=== PATIENT | male | born 1945 | race Caucasian/White ===

== ENCOUNTER 2016-04-24 00:47 | Emergency (ER) | payer OTHER, MEDICARE ==
[~2016-04-24] VITALS: Ht 170.2 cm; Wt 63.5 kg
[~2016-04-24 00:47] MED LIST: ATORVASTATIN CA10 MG PO; LISINOPRIL10 MG PO; MULTIVITAMIN1 TAB PO; PERCOCET 5-3251 EACH PO
--- NOTE | 2016-04-24 02:38 | ED HEAD/FACIAL INJ COMPLAINT ---
History of Present Illness General Chief Complaint: Laceration Procedure Stated Complaint: LAC TO LT EYEBROW S/P FALL NO LOC Source: patient, old records Exam Limitations: no limitations Vital Signs & Intake/Output Vital Signs & Intake/Output Vital Signs Date Time Temp Pulse Resp B/P Pulse O2 O2 Flow FiO2 Ox Delivery Rate 04/24 0246 97.4 56 19 148/85 96 04/24 0122 Room Air 04/24 0104 97.1 52 18 157/81 96 Room Air Allergies Coded Allergies: NO KNOWN ALLERGIES (02/14/16) Reconcile Medications Atorvastatin Calcium (Lipitor) 10 MG TABLET 1 TAB PO DAILY CHOLESTEROL ( Reported) Lisinopril 10 MG TABLET 1 TAB PO DAILY BP (Reported) Multivitamin (Multiple Vitamins) 1 EACH TABLET 1 TAB PO DAILY SUPPLEMENT ( Reported) Triage Note: TRIAGE: PATIENT TO ER FROM HOME REPORTS TRIPPED AND HIT L EYEBROW ON WOODWORK ON WALL, LAC APPROX 2CM LENGTH, NO ACTIVE BLEEDING NOTED. DENIES MILADY/ THINNERS. ALERT AND ORIENTED X3. Triage Nurses Notes Reviewed? yes Onset: Just prior to arrival Severity: mild Location: frontal Method of Injury: direct blow Loss of Consciousness: no loss of consciousness HPI: Prior to admission patient lost balance going to the bathroom and struck left forehead against door jam sustaining laceration extending to eyebrow. He denies fever chills nausea vomiting diarrhea abdominal pain chest pain shortness breath headache dysuria rash change in motor sensory function change of bowel bladder habit loss of consciousness. Past History Travel History Traveled to [place] past 21 day No Medical History Any Pertinent Medical History? 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 No Review of Systems Review of Systems Constitutional: Reports: no symptoms. EENTM: Reports: no symptoms. Respiratory: Reports: no symptoms. Cardiovascular: Reports: no symptoms. GI: Reports: no symptoms. Genitourinary: Reports: no symptoms. Musculoskeletal: Reports: no symptoms. Skin: Reports: see HPI. Neurological/Psychological: Reports: no symptoms. Hematologic/Endocrine: Reports: no symptoms. Immunologic/Allergic: Reports: no symptoms. All Other Systems: Reviewed and Negative Physical Exam Physical Exam General Appearance: well developed/nourished, alert, awake, mild distress Head: left frontal laceration extending to eyebrow Eyes: Bilateral: PERRL, EOMI. Ears, Nose, Throat: normal pharynx, normal ENT inspection, hearing grossly normal Neck: normal inspection, supple Respiratory: normal breath sounds Cardiovascular: regular rate/rhythm Gastrointestinal: normal bowel sounds, soft, non-tender, no organomegaly Back: normal inspection Extremities: normal inspection, normal range of motion, no edema Psychiatric: awake, alert, oriented x 3 Cranial Nerves: normal hearing, normal speech, PERRL Coordination/Gait: normal finger to nose, normal gait Motor/Sensory: no motor/sensory deficits Reflexes: 2+: bicep (R), bicep (L). Skin: intact, normal color, warm/dry Lymphatic: no anterior cervical nelson Progress Differential Diagnosis: facial fracture, skull fracture Plan of Care: Wound care Departure Departure Time of Disposition: 236 Disposition: HOME OR SELF CARE Condition: Stable Clinical Impression Primary Impression: Laceration of eyebrow, left Qualifiers: Encounter type: initial encounter Qualified Code: S01.112A - Laceration without foreign body of left eyelid and periocular area, initial encounter Referrals: ERIKA PATTERSON MD (PCP/Family) Additional Instructions: Suture removal 7-10 days Departure Forms: Customer Survey General Discharge Information Procedures Laceration/Wound Repair Laceration/Wound Repair: Wound Location: face Wound's Depth, Shape: linear Wound Length (cm): 3 Wound Explored: clean, irrigated extensively Irrigated w/ Saline (ccs): 250 Betadine Prep? No Anesthesia: 1% lidocaine Volume Anesthetic (ccs): 2 Wound Repaired With: sutures Suture Size/Type: 5:0, nylon Number of Sutures: 5 Layer Closure? No Sterile Dressing Applied: No Splint Applied? No Sling Applied? No
[2016-04-24 02:46] VITALS: BP 148/85
== END 2016-04-24 02:46 ==
LOC: ERH 00:47
DX: S01.112A Laceration without foreign body of left eyelid and periocular area, initial encounter (principal); W18.40XA Slipping, tripping and stumbling without falling, unspecified, initial encounter

== ENCOUNTER 2016-05-04 10:53 | Emergency (ER) | payer OTHER, MEDICARE ==
[~2016-05-04] VITALS: Ht 170.2 cm; Wt 63.5 kg
[2016-05-04 10:56] VITALS: BP 130/84
--- NOTE | 2016-05-04 11:41 | ED ANIMAL BITE/WOUND CHECK ---
History of Present Illness General Chief Complaint: Suture Removal/Wound Recheck Stated Complaint: SUTURE REMOVAL Source: patient, old records Exam Limitations: no limitations Vital Signs & Intake/Output Vital Signs & Intake/Output Vital Signs Date Time Temp Pulse Resp B/P Pulse O2 O2 Flow FiO2 Ox Delivery Rate 05/04 1056 97.4 54 20 130/84 100 Room Air Allergies Coded Allergies: NO KNOWN ALLERGIES (02/14/16) Reconcile Medications Atorvastatin Calcium (Lipitor) 10 MG TABLET 1 TAB PO DAILY CHOLESTEROL ( Reported) Lisinopril 10 MG TABLET 1 TAB PO DAILY BP (Reported) Multivitamin (Multiple Vitamins) 1 EACH TABLET 1 TAB PO DAILY SUPPLEMENT ( Reported) Triage Note: PT TO ED FOR SUTURE REMOVAL ABOVE LEFT EYE. PLACED 04/24. PT HAS NO PAIN, NO S/S INFECTION. Triage Nurses Notes Reviewed? yes Onset: Abrupt Duration: day(s): Timing: recent history No Modifying Factors: none HPI: 71-year-old male comes into emergency room for suture removal to face. Denies any redness on discharge fever or chills. Denies any other associated symptoms. Denies any pain. Patient was seen here about 9 days ago for suture placement. Past History Travel History Traveled to [place] past 21 day No Medical History Any Pertinent Medical History? 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 No Review of Systems Review of Systems Constitutional: Reports: no symptoms. EENTM: Reports: no symptoms. Respiratory: Reports: no symptoms. Cardiovascular: Reports: no symptoms. GI: Reports: no symptoms. Genitourinary: Reports: no symptoms. Musculoskeletal: Reports: see HPI. Skin: Reports: no symptoms. Neurological/Psychological: Reports: no symptoms. Hematologic/Endocrine: Reports: no symptoms. Immunologic/Allergic: Reports: no symptoms. All Other Systems: Reviewed and Negative Physical Exam Physical Exam General Appearance: well developed/nourished, mild distress Head: 4 sutures to face Eyes: Bilateral: normal appearance. Ears, Nose, Throat: normal ENT inspection, hearing grossly normal Neck: normal inspection Respiratory: no respiratory distress Back: normal inspection Extremities: normal range of motion Neurologic/Psych: awake, alert, oriented x 3, normal mood/affect Skin: intact, normal color, warm/dry Lymphatic: no anterior cervical nelson Progress Differential Diagnosis: abscess, cellulitis, joint infection, tenosysnovitis Plan of Care: 05/04/2016 11:52:52 AM Only 4 sutures appreciated. SUTURES removed. Departure Departure Disposition: HOME OR SELF CARE Condition: Stable Clinical Impression Primary Impression: Visit for suture removal Referrals: ERIKA PATTERSON MD (PCP/Family) Additional Instructions: Please note that there might be incidental findings in your evaluation that are unrelated to the current emergency department visit. Please notify your primary care doctor about this emergency department visit in order to obtain and review all of the testing performed so that these incidental findings can be monitored as needed. If you had an x-ray performed, please understand that some fractures may not be seen on the initial set of x-rays. If your symptoms persist you might need a repeat set of x-rays to check for such a fracture. If you had a laceration evaluated, please understand that foreign bodies such as glass or wood may not be visible to the naked eye or on plain x-rays. If the wound becomes red, swollen, increasingly more painful or if there is any drainage from the wound, please have it reevaluated by a physician for the possibility of a retained foreign body. Departure Forms: Customer Survey General Discharge Information
== END 2016-05-04 11:43 ==
LOC: ERH 10:53
DX: S01.81XA Laceration without foreign body of other part of head, initial encounter (principal); X58.XXXA Exposure to other specified factors, initial encounter
CPT/HCPCS: 99281

== ENCOUNTER 2017-03-29 20:04 | Observation (INO) | payer OTHER ==
[~2017-03-29] VITALS: Ht 170.2 cm; Wt 64.4 kg
[2017-03-29 20:34] LABS: ABSOLUTE BASOPHIL COUNT 0 /CUMM (0.0-0.2); ABSOLUTE EOSINOPHIL COUNT 0 /CUMM (0.0-0.7); ABSOLUTE LYMPH COUNT 1.7 /CUMM (1.2-3.4); ABSOLUTE MONOCYTE COUNT 0.8 /CUMM (0.10-0.60); BASOPHIL % 0.2 % (0.0-2.0); EOSINOPHIL % 0.3 % (0-5); HEMATOCRIT 46.7 % (42-52); MEAN CORPUSCULAR HGB 29.1 PG (27.0-31.0); MEAN CORPUSCULAR HGB CONC 33.5 G/DL (33.0-37.0); PLATELET COUNT 150 /CUMM (130-400); RBC DISTRIBUTION WIDTH 13.3 % (11.5-14.5); RED BLOOD CELL CT 5.37 /CUMM (4.70-6.10); WHITE BLOOD CELL COUNT 11.5 /CUMM (4.8-10.8)
--- NOTE | 2017-03-29 22:48 | ED GI/GU/ABDOMINAL COMPLAINT ---
History of Present Illness General Chief Complaint: Abdominal Pain/Flank Pain Stated Complaint: ABD PAIN Source: patient, family, old records Exam Limitations: no limitations Allergies Coded Allergies: NO KNOWN ALLERGIES (02/14/16) Reconcile Medications Atorvastatin Calcium (Lipitor) 10 MG TABLET 1 TAB PO DAILY CHOLESTEROL ( Reported) Lisinopril 10 MG TABLET 1 TAB PO DAILY BP (Reported) Triage Note: PER PT ABD PAIN NO NVD STARTED THIS PM, LAST YEAR WITH SIMILIAR PAIN HAD TO HAVE PART OF INTESTINGREMOVED FROM BLOCKAGE, NO NVD NO BM CO PT REPORTS HR IS ALWAYS IN THE 40'S. Triage Nurses Notes Reviewed? yes Onset: Gradual Duration: hour(s): Timing: single episode today Quality/Severity: mild Severity Numbers: 2 Location: periumbilical HPI: 71YO MALE with hx of ischemic bowel s/p resection in 2016 presents to ED complaining of periumbilical abdominal pain beginning shortly after lunch today. Patient describes pain as 2/10 currently, was about 3-4/10 at onset. Patient states that pain is in same area as prior pain with ischemic bowel however much less severe. Patient has been eating and drinking regularly today. Patient has had 4 bowel movements today, describes them as normal. He denies diarrhea, constipation, nausea, vomiting, fevers, chills, chest pain, dyspnea. (Patti KHOURY,Juana Piña) Vital Signs & Intake/Output Vital Signs & Intake/Output Vital Signs Date Time Temp Pulse Resp B/P B/P Pulse O2 O2 Flow FiO2 Mean Ox Delivery Rate 03/29 2353 96.8 52 18 126/75 97 Room Air 03/29 2050 49 22 136/87 98 (Ana RUGGIERO,Endy Avelar) Past History Travel History Traveled to [place] past 21 day No Medical History Any Pertinent Medical History? 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 No (Patti KHOURY,Juana Piña) Review of Systems Review of Systems Constitutional: Reports: no symptoms. EENTM: Reports: no symptoms. Respiratory: Reports: no symptoms. Cardiovascular: Reports: no symptoms. GI: Reports: see HPI. Genitourinary: Reports: no symptoms. Musculoskeletal: Reports: no symptoms. Skin: Reports: no symptoms. Neurological/Psychological: Reports: no symptoms. Hematologic/Endocrine: Reports: no symptoms. Immunologic/Allergic: Reports: no symptoms. All Other Systems: Reviewed and Negative (Patti KHOURY,Juana Piña) Physical Exam Physical Exam General Appearance: well developed/nourished, no apparent distress, alert, awake Head: atraumatic, normal appearance Eyes: Bilateral: normal appearance. Ears, Nose, Throat, Mouth: hearing grossly normal Neck: normal inspection, supple, full range of motion Respiratory: normal breath sounds, no respiratory distress, lungs clear Cardiovascular: bradycardia Gastrointestinal: normal bowel sounds, soft, no organomegaly, mild LLQ tenderness without rebound or gaurding Back: normal inspection, normal range of motion Extremities: normal range of motion Neurologic/Psych: awake, alert, oriented x 3 Skin: intact, normal color, warm/dry Core Measures ACS in differential dx? No Sepsis Present: No Sepsis Focused Exam Completed? No (Juana Maradiaga) Progress Differential Diagnosis: appendicitis, bowel obstruction, colon cancer, cholecystitis, diverticulitis, gastritis, ischemic bowel, inflamm bowel dis, perforated viscous, SBO Plan of Care: Orders Procedure Date/time Status Nothing by Mouth 03/30 B Active CBC WITHOUT DIFFERENTIAL 03/30 0600 Active BASIC ELECTROLYTES PLUS BUN&CR 03/30 0600 Active Pathway - chart 03/30 0056 Active Patient Data 03/30 0052 Active Code Status 03/30 0052 Active RAPID VIRAL INFLUENZA A 03/[address] in observation 03/[address] in observation 03/30 UNK Active VTE Mechanical Prophylaxis 03/30 UNK Active Vital Signs 03/30 UNK Active Intake & Output 03/30 UNK Active Activity/Ambulation 03/30 UNK Active URINALYSIS 03/29 2014 Complete TROPONIN LEVEL 03/29 2014 Complete LIPASE 03/29 2014 Complete COMPREHENSIVE METABOLIC PANEL 03/29 2014 Complete CBC WITHOUT DIFFERENTIAL 03/29 2014 Complete AMYLASE 03/29 2014 Complete EKG 03/29 2006 Active Current Medications Sig/Sherita Start time Last Medication Dose Stop Time Status Admin Heparin Sodium 5,000 UNIT Q8 03/30 0600 UNVr (Porcine) Dextrose/Lactated 1,000 ML Q8H 03/30 0100 UNVr 03/30 Ringer's 0128 (D5W in Lactated Ringers) Laboratory Tests 03/29/172325: Urine Color YEL, Urine Clarity CLEAR, Urine pH 6.5, Ur Specific [place] 1.015, Urine Protein NEG, Urine Ketones NEG, Urine Nitrite NEG, Urine Bilirubin NEG, Urine Urobilinogen 0.2, Ur Leukocyte Esterase NEG, Ur Microscopic EXAM NOT REQUIRED, Urine Hemoglobin NEG, Urine Glucose NEG 03/29/172024: Anion Gap 13, Estimated GFR > 60, BUN/Creatinine Ratio 23.0, Glucose 112 H, Calcium 9.2, Total Bilirubin 0.5, AST 33, ALT 39, Alkaline Phosphatase 78, Troponin I < 0.01, Total Protein 7.1, Albumin 4.2, Globulin 2.9, Albumin/ Globulin Ratio 1.4, Amylase 43, Lipase 36, CBC w Diff NO MAN DIFF REQ, RBC 5.37, MCV 87.0, MCH 29.1, MCHC 33.5, RDW 13.3, MPV 9.0, Gran % 78.0 H, Lymphocytes % 14.4 L, Monocytes % 7.1, Eosinophils % 0.3, Basophils % 0.2, Absolute Granulocytes 9.0 H, Absolute Lymphocytes 1.7, Absolute Monocytes 0.8 H, Absolute Eosinophils 0, Absolute Basophils 0 Microbiology 03/30 0051 NASOPHARYN: Influenza Virus A & B Rapid Smear - COMP CT scan shows small bowel obstruction. Patient's blood work is within normal limits. I discussed these findings with surgical PA Radha Spring who spoke with Dr. Contreras regarding this patient. It was recommended patient remain for observation given his small bowel obstruction. Patient started on IV fluids and will remain NPO. The patient was discussed with Dr. Pardo. Diagnostic Imaging: Viewed by Me: CT Scan. Discussed w/RAD: CT Scan. Radiology Impression: PATIENT: COLTON REIS PRESENT AGE: 71 PATIENT ACCOUNT NO: [id number] : 46 LOCATION: [facility] ORDERING PHYSICIAN: Endy Pardo MD SERVICE DATE: 03/29/17 EXAM TYPE: CAT - CT ABD & PELVIS W IV CONTRAST EXAMINATION: CT ABDOMEN AND PELVIS WITH CONTRAST CLINICAL INFORMATION: Diffuse abdominal pain. Concern for small bowel obstruction. COMPARISON: CT scan abdomen pelvis 02/27/2016 TECHNIQUE: Multidetector volumetric imaging was performed of the abdomen and pelvis following IV administration of 95 mL of Optiray 320 intravenous contrast. Sagittal and coronal reformatted images were obtained on the technologist's workstation. DLP: 249.2 mGy-cm FINDINGS: LUNG BASES: The visualized lung bases are unremarkable. LIVER, GALLBLADDER, AND BILIARY TREE: The liver is normal in size, shape, and attenuation. No focal hepatic lesion or biliary ductal dilatation is present. The gallbladder is unremarkable with no evidence of radiopaque gallstones, gallbladder wall thickening, or obvious pericholecystic inflammatory changes. PANCREAS: Unremarkable. SPLEEN: Unremarkable. ADRENAL GLANDS: Unremarkable. KIDNEYS AND URETERS: The kidneys are normal in size, shape , and attenuation. No hydronephrosis, hydroureter, or calculi seen. No perinephric stranding. BLADDER: Unremarkable. GASTROINTESTINAL TRACT: There is a surgical anastomosis of small bowel in the left midabdomen. The small bowel loops proximal to this anastomosis are dilated with air-fluid levels in the distal small bowel loop is decompressed. This is consistent with a moderate small bowel obstruction. There is no bowel wall thickening or edema however. Large bowels decompressed. Moderate amount of stool in the colon. The appendix is normal. ABDOMINAL WALL: No significant hernia is appreciated. LYMPH NODES: Normal. VASCULAR: Unremarkable. PELVIC VISCERA: Unremarkable. OSSEOUS STRUCTURES : Unremarkable. IMPRESSION: Small bowel obstruction with transition point at the surgical anastomosis of small bowel in the left midabdomen. DICTATED BY: Luis Ordonez MD DATE/TIME DICTATED:03/29/172309 PERSONNEL RECORDS CLERK:KUSUM DATE/ TIME TRANSCRIBED:03/29/172309 CONFIDENTIAL, DO NOT COPY WITHOUT APPROPRIATE AUTHORIZATION. <Electronically signed in Other Vendor System> SIGNED BY: Luis Ordonez MD 03/29/172317 Initial ED EKG: none (Juana Maradiaga) Departure Departure Disposition: STILL A PATIENT Condition: Stable Clinical Impression Primary Impression: Small bowel obstruction Secondary Impressions: Abdominal pain Qualifiers: Abdominal location: periumbilical Qualified Code: R10.33 - Periumbilical pain Referrals: María Bunn MD (PCP/Family) Departure Forms: Customer Survey General Discharge Information (Patti KHOURY,Juana Piña) Observation Note Spoke With: Asa Sutton DO Physician Advisor Notified: ANA RUGGIERO,ENDY Avelar Place Patient In: Non-ED OBS Care Area Rationale for Observation: My rational for observation is as follows [SBO, NPO, IV FLUIDS, MAY REQUIRE SURGICAL INTEVENTION.]. PA/SUPERVISOR REMELT Co-Sign Statement Statement: ED Attending supervision documentation- [X] I saw and evaluated the patient. I have also reviewed all the pertinent lab results and diagnostic results. I agree with the findings and the plan of care as documented in the PA's/SUPERVISOR REMELT's documentation. [X] I have reviewed the ED Record and agree with the PA's/SUPERVISOR REMELT's documentation. [] Additions or exceptions (if any) to the PAs/SUPERVISOR REMELT's note and plan are summarized below: [] (Ana RUGGIERO,Endy Avelar)
--- NOTE | 2017-03-29 23:18 | CT SCAN REPORT ---
EXAMINATION: CT ABDOMEN AND PELVIS WITH CONTRAST CLINICAL INFORMATION: Diffuse abdominal pain. Concern for small bowel obstruction. COMPARISON: CT scan abdomen pelvis 02/27/2016 TECHNIQUE: Multidetector volumetric imaging was performed of the abdomen and pelvis following IV administration of 95 mL of Optiray 320 intravenous contrast. Sagittal and coronal reformatted images were obtained on the technologist's workstation. DLP: 249.2 mGy-cm FINDINGS: LUNG BASES: The visualized lung bases are unremarkable. LIVER, GALLBLADDER, AND BILIARY TREE: The liver is normal in size, shape, and attenuation. No focal hepatic lesion or biliary ductal dilatation is present. The gallbladder is unremarkable with no evidence of radiopaque gallstones, gallbladder wall thickening, or obvious pericholecystic inflammatory changes. PANCREAS: Unremarkable. SPLEEN: Unremarkable. ADRENAL GLANDS: Unremarkable. KIDNEYS AND URETERS: The kidneys are normal in size, shape, and attenuation. No hydronephrosis, hydroureter, or calculi seen. No perinephric stranding. BLADDER: Unremarkable. GASTROINTESTINAL TRACT: There is a surgical anastomosis of small bowel in the left midabdomen. The small bowel loops proximal to this anastomosis are dilated with air-fluid levels in the distal small bowel loop is decompressed. This is consistent with a moderate small bowel obstruction. There is no bowel wall thickening or edema however. Large bowels decompressed. Moderate amount of stool in the colon. The appendix is normal. ABDOMINAL WALL: No significant hernia is appreciated. LYMPH NODES: Normal. VASCULAR: Unremarkable. PELVIC VISCERA: Unremarkable. OSSEOUS STRUCTURES: Unremarkable. IMPRESSION: Small bowel obstruction with transition point at the surgical anastomosis of small bowel in the left midabdomen.
--- NOTE | 2017-03-30 00:57 | Admission Core Measures ---
Acute Coronary Syndrome (CM) ACS Core Measures Acute Coronary Syndrome Diagnosis No Congestive Heart Failure (NEW) CHF Core Measures Congestive Heart Failure Diagnosis No Cerebrovascular Accident (NEW) CVA Core Measures CVA/TIA Diagnosis No Venous Thromboembolism VTE Core Summer (View Protocol) VTE Risk Factors Acute Medical Illness No Mechanical VTE Prophylaxis d/t N/A MechProphylax Ordered No VTE Pharm Prophylaxis d/t NA PharmProphylax ordered Problem List As ranked by this Provider includes Assessment & Plan 1. Small bowel obstruction HOME MEDS Home Med List Atorvastatin Calcium (Lipitor) 10 MG TABLET 1 TAB PO DAILY CHOLESTEROL ( Reported) Lisinopril 10 MG TABLET 1 TAB PO DAILY BP (Reported)
--- NOTE | 2017-03-30 01:08 | History & Physical Pre-Op ---
Radha Freeman 03/30/17 0057: General Information and HPI History of Present Illness: 71yoM presents to ED complaining of acute onset of abdominal pain one hour after eating dinner. He has felt well until 6pm this evening, and denies changes in bowel habits, changes in urinary patterns, changes in appetite, nausea, vomiting , chest pain, shortness of breath over the last few days. Denies any sick contacts. He came to the emergency department because the pain he felt his abdomen this evening with similar to pain he felt in the past when he had ischemic bowel, though not as severe as that previous episode. In 01/2016, he was found to have strangulated bowel and required ex/lap, small bowel rsxn (ponomarenko). He has had no issues since that intervention. He denies any other abdominal surgery. Of note, his HR in 40-50s, though he is a runner and this is normal for him. Allergies/Medications Allergies: Coded Allergies: NO KNOWN ALLERGIES (02/14/16) Home Med list Atorvastatin Calcium (Lipitor) 10 MG TABLET 1 TAB PO DAILY CHOLESTEROL ( Reported) Lisinopril 10 MG TABLET 1 TAB PO DAILY BP (Reported) Past History Medical History Cardiovascular: hypertension, hyperlipidemia Gastrointestinal: 01/2016: exlap, sb rsxn, ischemic bowel History of MRSA: No History of VRE: No History of CDIFF: No Surgical History Pertinent Surgical History: 01/2016: ex lap, sb rsxn Past Family/Social History Psychosocial History Where Do You Live? 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 runner Functional Ability Ambulation: independent Exam & Diagnostic Data Last 24 Hrs of Vital Signs/I&O Vital Signs Date Time Temp Pulse Resp B/P B/P Pulse O2 O2 Flow FiO2 Mean Ox Delivery Rate 03/29 2353 96.8 52 18 126/75 97 Room Air 03/29 2051 49 22 136/87 98 Intake & Output 03/30 0800 03/30 0000 03/29 1600 Intake Total 1000 Output Total Balance 1000 Intake, IV 1000 Physical Exam: GEN- NAD CARD- S1S2 RRR PULM- CTAB ABD- soft, nd, minimal ttp llq, well healed surgical incision, hyperactive bs, no rebound/guarding EXT- calves soft nt bl Last 24 Hrs of Labs/Bi: Laboratory Tests 03/29/172325: Urine Color YEL, Urine Clarity CLEAR, Urine pH 6.5, Ur Specific [place] 1.015, Urine Protein NEG, Urine Ketones NEG, Urine Nitrite NEG, Urine Bilirubin NEG, Urine Urobilinogen 0.2, Ur Leukocyte Esterase NEG, Ur Microscopic EXAM NOT REQUIRED, Urine Hemoglobin NEG, Urine Glucose NEG 03/29/172024: Anion Gap 13, Estimated GFR > 60, BUN/Creatinine Ratio 23.0, Glucose 112 H, Calcium 9.2, Total Bilirubin 0.5, AST 33, ALT 39, Alkaline Phosphatase 78, Troponin I < 0.01, Total Protein 7.1, Albumin 4.2, Globulin 2.9, Albumin/ Globulin Ratio 1.4, Amylase 43, Lipase 36, CBC w Diff NO MAN DIFF REQ, RBC 5.37, MCV 87.0, MCH 29.1, MCHC 33.5, RDW 13.3, MPV 9.0, Gran % 78.0 H, Lymphocytes % 14.4 L, Monocytes % 7.1, Eosinophils % 0.3, Basophils % 0.2, Absolute Granulocytes 9.0 H, Absolute Lymphocytes 1.7, Absolute Monocytes 0.8 H, Absolute Eosinophils 0, Absolute Basophils 0 Microbiology 03/30 0051 NASOPHARYN: Influenza Virus A & B Rapid Smear - COMP Diagnostic Data Other Results SERVICE DATE: 03/29/17-2104 EXAM TYPE: CAT - CT ABD & PELVIS W IV CONTRAST EXAMINATION: CT ABDOMEN AND PELVIS WITH CONTRAST CLINICAL INFORMATION: Diffuse abdominal pain. Concern for small bowel obstruction. COMPARISON: CT scan abdomen pelvis 02/27/2016 TECHNIQUE: Multidetector volumetric imaging was performed of the abdomen and pelvis following IV administration of 95 mL of Optiray 320 intravenous contrast. Sagittal and coronal reformatted images were obtained on the technologist's workstation. DLP: 249.2 mGy-cm FINDINGS: LUNG BASES: The visualized lung bases are unremarkable. LIVER, GALLBLADDER, AND BILIARY TREE: The liver is normal in size, shape, and attenuation. No focal hepatic lesion or biliary ductal dilatation is present. The gallbladder is unremarkable with no evidence of radiopaque gallstones, gallbladder wall thickening, or obvious pericholecystic inflammatory changes. PANCREAS: Unremarkable. SPLEEN: Unremarkable. ADRENAL GLANDS: Unremarkable. KIDNEYS AND URETERS: The kidneys are normal in size, shape, and attenuation. No hydronephrosis, hydroureter, or calculi seen. No perinephric stranding. BLADDER: Unremarkable. GASTROINTESTINAL TRACT: There is a surgical anastomosis of small bowel in the left midabdomen. The small bowel loops proximal to this anastomosis are dilated with air-fluid levels in the distal small bowel loop is decompressed. This is consistent with a moderate small bowel obstruction. There is no bowel wall thickening or edema however. Large bowels decompressed. Moderate amount of stool in the colon. The appendix is normal. ABDOMINAL WALL: No significant hernia is appreciated. LYMPH NODES: Normal. VASCULAR: Unremarkable. PELVIC VISCERA: Unremarkable. OSSEOUS STRUCTURES: Unremarkable. IMPRESSION: Small bowel obstruction with transition point at the surgical anastomosis of small bowel in the left midabdomen. Assessment/Plan Assessment/Plan: A- 71yoM with SBO with transition point at SB anastamosis, approx 1yr postop exlap/sb rsxn on virgin abdomen for strangulated ischemic bowel, currently stable with minimal abdominal tenderness on exam, and denies clincal obstructive symptoms at this time. P- dw Dr. Sutton. Will bring into hospital for observation, due to CT findings and significant history. NPO, IVF, IV meds, serial labs, serial abd exams. NGT deferred due to good clinical condition, though discussed with pt that will be placed if condition worsens. Pt does wish to assume care with Dr. Melvin, as he operated on him in the past. Full code As Ranked By This Provider Problem List: 1. Small bowel obstruction Lesley CABELLOAsa 03/30/17 1201: Attending MD Review Statement Attending Statement Attending MD Statement: examined this patient, discuss w/resident/PA/WARDROBE MANAGER, agreed w/resident/PA/WARDROBE MANAGER, reviewed EMR data (avail), reviewed images Attending Assessment/Plan: Patient seen and examined, agree with above. Doing better, +flatus, no pain/N/V. AVSS. Abd-soft. Labs ok. AXR apears to show resolution of SBO conpred to CT scan from last night. Given clinical improvement will start clears and assess tolerance, OOB.
[2017-03-30 03:02] VITALS: BP 130/67
[2017-03-30 07:19] VITALS: BP 123/73
--- NOTE | 2017-03-30 08:14 | PN- General Surgery ---
Subjective Subjective: No complaints overnight, symptoms have been improving. Did not need ngt. Has been passing flatus. Has not had bm. Denies hunger presently. Also denies nausea and vomitting. Denies chest pain, sob, difficulty breathing. Has been oob. Objective Vital Signs and I&Os Vital Signs Date Time Temp Pulse Resp B/P B/P Pulse O2 O2 Flow FiO2 Mean Ox Delivery Rate 03/30 0743 48 03/30 0719 98.1 41 18 123/73 97 Room Air 03/30 0302 97.8 43 20 130/67 98 Room Air 03/29 2353 96.8 52 18 126/75 97 Room Air 03/29 2051 49 22 136/87 98 Intake & Output 03/30 1600 03/30 0800 03/30 0000 03/29 1600 03/29 0800 03/29 0000 Intake Total 1500 Output Total Balance 1500 Intake, IV 1500 Patient 142 lb Weight Physical Exam: Gen: Alert and oriented x3, no distress Cards: sinus bradycardia, s1s2 Pulm: Non-labored respiratory effort, cta Abd: Non-tender, non-distended Ext: Moves all extremities, distal sensation intact, skin warm, calves soft and non-tender bilaterally Assessment/Plan Assessment/Plan 71 year old male, hospital day 0 for abdominal pain and ct imaging suggestive of sbo. Has been npo. No NGT. PSH significant for bowel resection for ischemic bowel approximately 13 months ago -Continue iv fluids for now -? obtain multiview -Consider starting clears -Patient to be seen by Dr. Melvin today Core Measures Venous Thromboembolism VTE Risk Factors Acute Medical Illness No Mechanical VTE Prophylaxis d/t N/A MechProphylax Ordered No VTE Pharm Prophylaxis d/t NA PharmProphylax ordered
[2017-03-30 09:12] LABS: ABSOLUTE BASOPHIL COUNT 0 /CUMM (0.0-0.2); ABSOLUTE EOSINOPHIL COUNT 0.1 /CUMM (0.0-0.7); ABSOLUTE GRANULOCYTE CT 4.6 /CUMM (1.4-6.5); ABSOLUTE LYMPH COUNT 1.3 /CUMM (1.2-3.4); ABSOLUTE MONOCYTE COUNT 0.6 /CUMM (0.10-0.60); BASOPHIL % 0.5 % (0.0-2.0); EOSINOPHIL % 0.8 % (0-5); GRANULOCYTE % 70.1 % (42.2-75.2); HEMATOCRIT 42.3 % (42-52); MEAN CORPUSCULAR HGB 29.5 PG (27.0-31.0); MEAN CORPUSCULAR HGB CONC 33.8 G/DL (33.0-37.0); MEAN CORPUSCULAR VOLUME 87.3 FL (80.0-94.0); MEAN PLATELET VOLUME 9.6 FL (7.4-10.4); PLATELET COUNT 127 /CUMM (130-400); RBC DISTRIBUTION WIDTH 13.3 % (11.5-14.5); RED BLOOD CELL CT 4.84 /CUMM (4.70-6.10); WHITE BLOOD CELL COUNT 6.6 /CUMM (4.8-10.8)
--- NOTE | 2017-03-30 10:32 | RADIOLOGY REPORT ---
EXAMINATION: XR ABDOMEN MULTIPLE VIEWS CLINICAL INDICATION: Abdominal pain, evaluate for small bowel obstruction. COMPARISON: CT scan of the abdomen and pelvis dated 03/29/2017. TECHNIQUE: 2 views of the abdomen. FINDINGS: A gas-filled small bowel loop is present in the left upper quadrant which is borderline in size measuring 3.4 cm in diameter. No air-fluid levels are present on the upright portion of the study. Gas and fecal material is present throughout the colon and within the rectosigmoid region. No intraperitoneal free air is identified. IMPRESSION: 1. Borderline distended gas-filled small bowel loop in the left upper quadrant, without slime evidence of small bowel obstruction. Clinical correlation requested. 2. Gas and fecal material is present throughout the colon as described.
[2017-03-30 13:20] VITALS: BP 120/82
--- NOTE | 2017-03-30 16:15 | Patient Discharge Instructions ---
Discharge Instructions General Discharge Information You were seen/treated for: Small bowel obstruction You had these procedures: Conservative management promoting bowel rest: nothing by mouth, iv fluid based hydration Watch for these problems: Increasing abdominal pain Increasing abdominal distension Worsening nausea and or vomitting Inability to pass flatus or move bowels Fever greater than 101.5 Special Instructions: Advance diet slowly as tolerated. Avoid fibrous foods. Avoid foods that are by nature difficult to digest, for example gummy candies and popcorn. Diet Continue normal diet: Yes Recommended Diet: Low Residue Activity Full Activity/No Limits: No Activity Self Limited: Yes Acute Coronary Syndrome Inclusion Criteria At DC or during hospital stay patient has or had the following: ACS DIAGNOSIS No Discharge Core Measures Meds if any: Prescribed or Continued at Discharge Meds if any: NOT Prescribed or Continued at Discharge Congestive Heart Failure Inclusion Criteria At DC or during hospital stay patient has or had the following: CHF DIAGNOSIS No Discharge Core Measures Meds if any: Prescribed or Continued at Discharge Meds if any: NOT Prescribed or Continued at Discharge Cerebrovascular accident Inclusion Criteria At DC or during hospital stay patient has or had the following: CVA/TIA Diagnosis No Discharge Core Measures Meds if any: Prescribed or Continued at Discharge Meds if any: NOT Prescribed or Continued at Discharge Venous thromboembolism Inclusion Criteria VTE Diagnosis No VTE Type NONE VTE Confirmed by (Test) NONE Discharge Core Measures - Per Current guidelines, there needs to be overlap - treatment for the first 5 days of Warfarin therapy. - If discharged on Warfarin prior to 5 days of - overlap therapy, the patient will need to be - assessed for post discharge needs including - *Post discharge parental anticoagulation - *Warfarin and/or parental anticoagulation education - *Follow up date to check INR post discharge At least 5 days overlap therapy as Inpatient No Meds if any: Prescribed or Continued at Discharge Note: Overlap Therapy is Warfarin and Anticoagulant Meds if any: NOT Prescribed or Continued at Discharge
--- NOTE | 2017-03-30 18:30 | History & Physical Pre-Op ---
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 Partial bowel obstruction which we felt was due to diet and still healing and swelling at the anastomosis. Abruptly yesterday after dinner he started having some mid upper abdominal pain no nausea no vomiting and he was concerned that it was similar to that first episode so he came to the ER. Since then he has felt a little bit better he is passing gas. According to his son he is very regimented he exercises regularly daily yesterday he did run 4 miles no unusual straining for lunch though he made a fruit salad and for dinner he had a whole bread like pizza. Otherwise no recent flulike symptoms no fevers or changes in bowel habits weight or appetite in retrospect for the past month or so occasionally he belches he thinks is from gas but it is not painful. I've reviewed the PFSH and ROS, these have not changed from that original E&M in the hospital from February 14, 2016 unless stated no new meds or diagnoses. He denies any heart disease or arrhythmias bleeding problems either excessive bleeding bruising or blood clots or anemia. Family history negative for diabetes or heart disease Allergies/Medications Allergies: Coded Allergies: NO KNOWN ALLERGIES (02/14/16) Home Med list Atorvastatin Calcium (Lipitor) 10 MG TABLET 1 TAB PO DAILY CHOLESTEROL ( Reported) Lisinopril 10 MG TABLET 1 TAB PO DAILY BP (Reported) Past History Medical History Blood Transfusion Hx: No Neurological: vertigo EENT: NONE Cardiovascular: hypertension, hyperlipidemia Respiratory: NONE Gastrointestinal: 01/2016: exlap, sb rsxn, ischemic bowel Hepatic: NONE Renal: NONE Musculoskeletal: NONE Psychiatric: NONE Endocrine: NONE Blood Disorders: NONE Cancer(s): NONE CAN SLIDER/Reproductive: NONE History of MRSA: No History of VRE: No History of CDIFF: No Isolation History: Standard Influenza Vaccine: 12/13/16 Surgical History Pertinent Surgical History: 01/2016: ex lap, sb rsxn Past Family/Social History Psychosocial History Where Do You Live? 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 runner Functional Ability Ambulation: independent Review of Systems Review of Systems: As above Exam & Diagnostic Data Last 24 Hrs of Vital Signs/I&O I reviewed Vital Signs Date Time Temp Pulse Resp B/P B/P Pulse O2 O2 Flow FiO2 Mean Ox Delivery Rate 03/30 1320 98.0 43 17 120/82 98 Room Air 03/30 0743 48 03/30 0719 98.1 41 18 123/73 97 Room Air 03/30 0302 97.8 43 20 130/67 98 Room Air 03/29 2353 96.8 52 18 126/75 97 Room Air 03/29 2051 49 22 136/87 98 I reviewed Intake & Output 03/30 1600 03/30 0800 03/30 0000 Intake Total 1000 1500 Output Total 500 Balance 500 1500 Intake, IV 1000 1500 Intake, Oral 0 Number 0 Bowel Movements Output, Urine 500 Patient 142 lb Weight Physical Exam: Constitutional: pleasant, no acute distress, conversant Eyes: sclera anicteric ENMT: ears and nose atraumatic, moist mucous membranes, good dentition, no lip lesions Neck: Supple, trachea is midline, no cervical or supraclavicular adenopathy and no palpable thyromegaly Cardiovascular: S1, S2, no murmurs, no peripheral edema Respiratory: clear to auscultation with normal respiratory effort and no intercostal retractions GI: abdomen soft, nontender, nondistended, no palpable hepatosplenomegaly, positive bowel sounds on auscultation Extremities / lymphatics: symmetrically warm, free range of motion no peripheral edema, no cervical, supraclavicular, axillary, or inguinal adenopathy Musculoskeletal: Did not evaluate gait and station, no digital cyanosis, good muscle strength and tone no atrophy, motor grossly 5 out of 5 throughout Skin: no jaundice, no rashes warm, nondiaphoretic, no areas of erythema or induration Psychiatric: mood and affect are appropriate and alert and oriented to person place and time Last 24 Hrs of Labs/Bi: I reviewed Laboratory Tests 03/30/17 0727: Anion Gap 12, Estimated GFR > 60, BUN/Creatinine Ratio 22.5, CBC w Diff NO MAN DIFF REQ, RBC 4.84, MCV 87.3, MCH 29.5, MCHC 33.8, RDW 13.3, MPV 9.6, Gran % 70.1, Lymphocytes % 19.4 L, Monocytes % 9.2, Eosinophils % 0.8, Basophils % 0.5 , Absolute Granulocytes 4.6, Absolute Lymphocytes 1.3, Absolute Monocytes 0.6, Absolute Eosinophils 0.1, Absolute Basophils 0 03/29/172325: Urine Color YEL, Urine Clarity CLEAR, Urine pH 6.5, Ur Specific [place] 1.015, Urine Protein NEG, Urine Ketones NEG, Urine Nitrite NEG, Urine Bilirubin NEG, Urine Urobilinogen 0.2, Ur Leukocyte Esterase NEG, Ur Microscopic EXAM NOT REQUIRED, Urine Hemoglobin NEG, Urine Glucose NEG 03/29/172024: Anion Gap 13, Estimated GFR > 60, BUN/Creatinine Ratio 23.0, Glucose 112 H, Calcium 9.2, Total Bilirubin 0.5, AST 33, ALT 39, Alkaline Phosphatase 78, Troponin I < 0.01, Total Protein 7.1, Albumin 4.2, Globulin 2.9, Albumin/ Globulin Ratio 1.4, Amylase 43, Lipase 36, CBC w Diff NO MAN DIFF REQ, RBC 5.37, MCV 87.0, MCH 29.1, MCHC 33.5, RDW 13.3, MPV 9.0, Gran % 78.0 H, Lymphocytes % 14.4 L, Monocytes % 7.1, Eosinophils % 0.3, Basophils % 0.2, Absolute Granulocytes 9.0 H, Absolute Lymphocytes 1.7, Absolute Monocytes 0.8 H, Absolute Eosinophils 0, Absolute Basophils 0 Microbiology 03/30 0051 NASOPHARYN: Influenza Virus A & B Rapid Smear - COMP Diagnostic Data Other Results SERVICE DATE: 03/29/17 EXAM TYPE: CAT - CT ABD & PELVIS W IV CONTRAST EXAMINATION: CT ABDOMEN AND PELVIS WITH CONTRAST CLINICAL INFORMATION: Diffuse abdominal pain. Concern for small bowel obstruction. COMPARISON: CT scan abdomen pelvis 02/27/2016 TECHNIQUE: Multidetector volumetric imaging was performed of the abdomen and pelvis following IV administration of 95 mL of Optiray 320 intravenous contrast. Sagittal and coronal reformatted images were obtained on the technologist's workstation. DLP: 249.2 mGy-cm FINDINGS: LUNG BASES: The visualized lung bases are unremarkable. LIVER, GALLBLADDER, AND BILIARY TREE: The liver is normal in size, shape, and attenuation. No focal hepatic lesion or biliary ductal dilatation is present. The gallbladder is unremarkable with no evidence of radiopaque gallstones, gallbladder wall thickening, or obvious pericholecystic inflammatory changes. PANCREAS: Unremarkable. SPLEEN: Unremarkable. ADRENAL GLANDS: Unremarkable. KIDNEYS AND URETERS: The kidneys are normal in size, shape, and attenuation. No hydronephrosis, hydroureter, or calculi seen. No perinephric stranding. BLADDER: Unremarkable. GASTROINTESTINAL TRACT: There is a surgical anastomosis of small bowel in the left midabdomen. The small bowel loops proximal to this anastomosis are dilated with air-fluid levels in the distal small bowel loop is decompressed. This is consistent with a moderate small bowel obstruction. There is no bowel wall thickening or edema however. Large bowels decompressed. Moderate amount of stool in the colon. The appendix is normal. ABDOMINAL WALL: No significant hernia is appreciated. LYMPH NODES: Normal. VASCULAR: Unremarkable. PELVIC VISCERA: Unremarkable. OSSEOUS STRUCTURES: Unremarkable. IMPRESSION: Small bowel obstruction with transition point at the surgical anastomosis of small bowel in the left midabdomen. Assessment/Plan Assessment/Plan: Studies: Last night's white blood cell count was higher it has come down, platelets are slightly low they have been on the previous admission, I reviewed last night CT scan of PACS myself and compared it to the 2 from January 2016, it shows some dilated small bowel with a mild transition no twisting at the anastomosis which appears open. Also this was with IV contrast and the celiac SMA and BRAN appear open. He had a follow-up Multiview x-ray earlier today which I reviewed on PACS myself as well and shows improvement from yesterday with much less distention of the small bowel. Impression is small bowel obstruction presumably from adhesions from prior surgeries, often exacerbated by an unusual meal high in fiber or chewy food, or even straining. In the meantime will treat in routine nonoperative fashion with bowel rest, as he is improved, hold off NG tube for decompression, maintenance IV fluids and for the GI losses, monitor uo, electrolytes, vital signs, serial exams, labs, abdominal x-rays. Presently there are no peritoneal signs, because he is improved the plan is to give him a clear liquid diet if he moves his bowels we will try regular food and try to discharge him home I told him I am not sure that will happen all today. I explained that in someone who had a bowel obstruction it is important that he reestablish bowel function first. If situation plateaus or worsens, especially if abdominal pain worsens in next 6-12 hours, might need urgent surgical intervention in the interest of bowel viability, but as I explained, most of the time it is not needed. As Ranked By This Provider Problem List: 1. Abdominal pain 2. Small bowel obstruction
[2017-03-30 23:35] VITALS: BP 125/83
--- NOTE | 2017-03-31 07:25 | PN- General Surgery ---
Subjective Subjective: Patient states he feels perfect. He states he is tolerating a clear liquid diet without any nausea or vomiting. He denies any abdominal pain, fever, chills, chest pain or shortness of breath. He states he is passing flatus and ambulating in the halls reguarly. Per nursing, patient heart rate has been in the 40s, which is his baseline. Objective Vital Signs and I&Os Vital Signs Date Time Temp Pulse Resp B/P B/P Pulse O2 O2 Flow FiO2 Mean Ox Delivery Rate 03/30 2335 98.2 49 18 125/83 98 Room Air 03/30 1320 98.0 43 17 120/82 98 Room Air 03/30 0743 48 Intake & Output 03/31 0800 03/31 0000 03/30 1600 03/30 0800 03/30 0000 03/29 1600 Intake Total 240 1125 1000 1500 Output Total 900 500 Balance 240 249 231 8964 Intake, IV 125 1000 1500 Intake, Oral 240 1000 0 Number 0 0 Bowel Movements Output, Urine 900 500 Patient 142 lb Weight Physical Exam: Gen - resting comfortably in bed awake an alert in NAD Cardiac - S1S2 noted, bradycardic Lungs - good inspiratory effort, CTAB Abdomen - soft and flat with well-healed midline incision, bowel sounds present, dull to percussion, nontender to palpation, no rebound or guarding noted Ext - no edema or calf tenderness B/L Current Medications: Current Medications Sig/Shertia Start time Last Medication Dose Route Stop Time Status Admin Dextrose/Lactated 1,000 ML Q8H 03/30 0100 DC 03/30 Ringer's IV 0900 Heparin Sodium 5,000 UNIT Q8 03/30 0600 AC 03/31 (Porcine) SC 0511 Results Last 48 Hours of Labs: Laboratory Tests 03/30 03/29 0727 2326 Chemistry Sodium (137 - 145 mmol/L) 144 Potassium (3.5 - 5.1 mmol/L) 3.7 Chloride (98 - 107 mmol/L) 109 H Carbon Dioxide (22 - 30 mmol/L) 22 Anion Gap (5 - 16) 12 BUN (9 - 20 mg/dL) 18 Creatinine (0.7 - 1.2 mg/dL) 0.8 Estimated GFR (>60 ml/min) > 60 BUN/Creatinine Ratio (7 - 25 %) 22.5 Hematology CBC w Diff NO MAN DIFF REQ WBC (4.8 - 10.8 /CUMM) 6.6 RBC (4.70 - 6.10 /CUMM) 4.84 Hgb (14.0 - 18.0 G/DL) 14.3 Hct (42 - 52 %) 42.3 MCV (80.0 - 94.0 FL) 87.3 MCH (27.0 - 31.0 PG) 29.5 MCHC (33.0 - 37.0 G/DL) 33.8 RDW (11.5 - 14.5 %) 13.3 Plt Count (130 - 400 /CUMM) 127 L MPV (7.4 - 10.4 FL) 9.6 Gran % (42.2 - 75.2 %) 70.1 Lymphocytes % (20.5 - 51.1 %) 19.4 L Monocytes % (1.7 - 9.3 %) 9.2 Eosinophils % (0 - 5 %) 0.8 Basophils % (0.0 - 2.0 %) 0.5 Absolute Granulocytes (1.4 - 6.5 /CUMM) 4.6 Absolute Lymphocytes (1.2 - 3.4 /CUMM) 1.3 Absolute Monocytes (0.10 - 0.60 /CUMM) 0.6 Absolute Eosinophils (0.0 - 0.7 /CUMM) 0.1 Absolute Basophils (0.0 - 0.2 /CUMM) 0 Urines Urine Color (YEL,AMB,STR) YEL Urine Clarity (CLEAR) CLEAR Urine pH (5.0 - 8.0) 6.5 Ur Specific [place] (1.001 - 1.035) 1.015 Urine Protein (NEG,<30 MG/DL) NEG Urine Ketones (NEG) NEG Urine Nitrite (NEG) NEG Urine Bilirubin (NEG) NEG Urine Urobilinogen (0.1 - 1.0 EU/dl) 0.2 Ur Leukocyte Esterase (NEG) NEG Ur Microscopic EXAM NOT REQUIRED Urine Hemoglobin (NEG) NEG Urine Glucose (N MG/DL) NEG 03/29 2024 Chemistry Sodium (137 - 145 mmol/L) 145 Potassium (3.5 - 5.1 mmol/L) 5.0 Chloride (98 - 107 mmol/L) 103 Carbon Dioxide (22 - 30 mmol/L) 29 Anion Gap (5 - 16) 13 BUN (9 - 20 mg/dL) 23 H Creatinine (0.7 - 1.2 mg/dL) 1.0 Estimated GFR (>60 ml/min) > 60 BUN/Creatinine Ratio (7 - 25 %) 23.0 Glucose (65 - 99 mg/dL) 112 H Calcium (8.4 - 10.2 mg/dL) 9.2 Total Bilirubin (0.2 - 1.3 mg/dL) 0.5 AST (17 - 59 U/L) 33 ALT (21 - 72 U/L) 39 Alkaline Phosphatase (< 127 U/L) 78 Troponin I (<0.11 ng/ml) < 0.01 Total Protein (6.3 - 8.2 g/dL) 7.1 Albumin (3.5 - 5.0 g/dL) 4.2 Globulin (1.9 - 4.2 gm/dL) 2.9 Albumin/Globulin Ratio (1.1 - 2.2 %) 1.4 Amylase (30 - 110 U/L) 43 Lipase (23 - 300 U/L) 36 Hematology CBC w Diff NO MAN DIFF REQ WBC (4.8 - 10.8 /CUMM) 11.5 H RBC (4.70 - 6.10 /CUMM) 5.37 Hgb (14.0 - 18.0 G/DL) 15.6 Hct (42 - 52 %) 46.7 MCV (80.0 - 94.0 FL) 87.0 MCH (27.0 - 31.0 PG) 29.1 MCHC (33.0 - 37.0 G/DL) 33.5 RDW (11.5 - 14.5 %) 13.3 Plt Count (130 - 400 /CUMM) 150 MPV (7.4 - 10.4 FL) 9.0 Gran % (42.2 - 75.2 %) 78.0 H Lymphocytes % (20.5 - 51.1 %) 14.4 L Monocytes % (1.7 - 9.3 %) 7.1 Eosinophils % (0 - 5 %) 0.3 Basophils % (0.0 - 2.0 %) 0.2 Absolute Granulocytes (1.4 - 6.5 /CUMM) 9.0 H Absolute Lymphocytes (1.2 - 3.4 /CUMM) 1.7 Absolute Monocytes (0.10 - 0.60 /CUMM) 0.8 H Absolute Eosinophils (0.0 - 0.7 /CUMM) 0 Absolute Basophils (0.0 - 0.2 /CUMM) 0 Recent Imaging Studies: SERVICE DATE: 03/30/17- EXAM TYPE: RAD - [id number] VIEWS EXAMINATION: XR ABDOMEN MULTIPLE VIEWS CLINICAL INDICATION: Abdominal pain, evaluate for small bowel obstruction. COMPARISON: CT scan of the abdomen and pelvis dated 03/29/2017. TECHNIQUE: 2 views of the abdomen. FINDINGS: A gas-filled small bowel loop is present in the left upper quadrant which is borderline in size measuring 3.4 cm in diameter. No air-fluid levels are present on the upright portion of the study. Gas and fecal material is present throughout the colon and within the rectosigmoid region. No intraperitoneal free air is identified. IMPRESSION: 1. Borderline distended gas-filled small bowel loop in the left upper quadrant, without slime evidence of small bowel obstruction. Clinical correlation requested. 2. Gas and fecal material is present throughout the colon as described. 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 Cont conservative management Advance diet once he has a BM Monitor with serial abdominal exams DVT ppx on board - hsq Anticipate d/c later if he has a BM Cont observation status Will d/w Dr. Perdue Core Measures Venous Thromboembolism VTE Risk Factors Acute Medical Illness No Mechanical VTE Prophylaxis d/t N/A MechProphylax Ordered No VTE Pharm Prophylaxis d/t NA PharmProphylax ordered
[2017-03-31 07:35] VITALS: BP 122/62
--- NOTE | 2017-03-31 19:46 | Discharge Summary ---
Visit Information Visit Dates Admission Date: 03/30/17 Discharge Date: 03/31/17 Hospital Course Course Attending Physician: Robson Melvin MD Primary Care Physician: Oni RUGGIERO,[facility] Course: Patient has a history of small bowel obstruction sudden onset. Strangulate it small bowel needed resection so he presented with similar symptoms he came to the ER imaging showed bowel obstruction again wasn't as severe this time and he improved without an NG tube overnight this morning he had a bowel movement we advanced his diet we discussed his diet and activity and he was discharged home, this morning he appeared without signs of infection and ischemia or bleeding moving his bowels passing gas no fever no abdominal pain. Temperature 98.1 blood pressure 122/62 pulse 43 respirations 18 Constitutional: no acute distress no pain Eyes: sclera anicteric ENMT: moist mucous membranes Cardiovascular: S1-S2 no murmurs no peripheral edema Respiratory: clear to auscultation with normal respiratory effort and no intercostal retractions GI: abdomen soft nontender nondistended Extremities / lymphatics: free range of motion no peripheral edema Skin: no jaundice no rashes warm, nondiaphoretic Psychiatric: mood and affect are appropriate and alert and oriented to person place and time Impression and plan is avoid large portions of high-fiber food avoid straining dehydration advance her diet carefully at home. In the office next week or sooner if symptoms recur I encouraged him that although this could happen again which is a little disconcerting he does improve rapidly. Allergies: Coded Allergies: NO KNOWN ALLERGIES (02/14/16) Disposition Summary Disposition Principal Diagnosis: Small bowel obstruction Additional Diagnosis: None acute Discharge Disposition: home or self care Discharge Instructions General Discharge Information Code Status: Full Code Patient's Diet: Discussed above avoid large portions of high-fiber fluid or chewy candy Patient's Activity: Avoid unusual straining and dehydration Follow-Up Instructions/Appts: Next week the office or sooner if symptoms recur Medications at Discharge Discharge Medications: Continue taking these medications: Lisinopril (Lisinopril) 10 MG TABLET 1 Tablet ORAL DAILY Qty = 90 Atorvastatin Calcium (Lipitor) 10 MG TABLET 1 Tablet ORAL DAILY Qty = 90 Copies To: Ngozi RUGGIERO,Robson [place]
== END 2017-03-31 12:39 ==
LOC: ERH 20:04 → 2NB 03-30 00:30 → ERHI 03-30 00:30 → 2NB 03-30 00:30 → ENRESERV 03-30 02:14 → 2NB 03-30 02:37 → ENPENDDIS 03-31 11:52 → 2NB 03-31 12:39
PROVIDERS: Emergency Medicine; Physician Assistant Surgical
DX: K56.50 Intestinal adhesions [bands], unspecified as to partial versus complete obstruction (principal); I10 Essential (primary) hypertension; E78.5 Hyperlipidemia, unspecified
CPT/HCPCS: 36415; 74021; 74177; 81003; 82436; 87804; 87804-59; 93005; 93010; 96360; 96372; G0378; J1644